=== PATIENT | male | born 1970 | race Two or more races ===

== ENCOUNTER 2019-10-02 15:05 | Emergency (ER) | payer MEDICAID ==
[~2019-10-02] VITALS: Ht 172.7 cm; Wt 83.0 kg
[2019-10-02] MEDS ORDERED: LIDOCAINE HCL/EPINEPHRINE 1%-EPI 1:100,000 20 ML VIAL INFIL SCH (15:44)
[2019-10-02] MEDS ORDERED: BACITRACIN ZINC OINT UDPKT TOP ONE (15:45)
[2019-10-02] MEDS ORDERED: LIDOCAINE 1%/EPI 1:100,000 10 ML VIAL IJ ONE (15:45)
[2019-10-02] MEDS ORDERED: TETANUS, DIPHTHERIA, PERTUSSIS VAC/PF 0.5ML (>7YR OLD) IM ONE (15:45)
[2019-10-02 17:15] VITALS: BP 115/73
[2019-10-02] MEDS ORDERED: CEPHALEXIN 250MG CAPSULE PO ONE (18:45)
== END 2019-10-02 20:22 | disposition home or self-care (01) ==
LOC: EDSEX 15:05 → ER 15:05
DX: S81.812A Laceration without foreign body, left lower leg, initial encounter (principal); V13.4XXA Pedal cycle driver injured in collision with car, pick-up truck or van in traffic accident, initial encounter; Y93.89 Activity, other specified; Y92.488 Other paved roadways as the place of occurrence of the external cause
CPT/HCPCS: 12002; 70450; 73590; 90471; 90715; 99284; J3490

== ENCOUNTER 2019-10-03 11:05 | Emergency (ER) | payer SELFPAY ==
[~2019-10-03] VITALS: Ht 172.7 cm; Wt 65.0 kg
[2019-10-03] MEDS ORDERED: IBUPROFEN 600MG TABLET PO STA (13:09)
[2019-10-03] MEDS ORDERED: LIDOCAINE HCL 1% 20ML VIAL (Pyxis) INJ INFIL ONE (13:15)
[2019-10-03] MEDS ORDERED: CEFTRIAXONE SODIUM 1 G/VIAL IM ONE (13:15)
[2019-10-03 14:20] VITALS: BP 122/68
== END 2019-10-03 14:20 | disposition home or self-care (01) ==
LOC: ER 11:29
DX: S81.812D Laceration without foreign body, left lower leg, subsequent encounter (principal); L03.116 Cellulitis of left lower limb; X58.XXXD Exposure to other specified factors, subsequent encounter
CPT/HCPCS: 96372; 99283; J0696; J3490

== ENCOUNTER 2019-10-06 14:46 | Emergency (ER) | payer MEDICAID ==
[~2019-10-06] VITALS: Ht 172.7 cm; Wt 75.0 kg
[2019-10-06 14:58] VITALS: BP 104/68
[2019-10-06] MEDS ORDERED: CEPH500C2 PO (15:03)
[2019-10-06] MEDS ORDERED: SULF1TAB48 PO (15:03)
[2019-10-06] MEDS ORDERED: IBUP-2029 PO (15:03)
== END 2019-10-06 15:23 | disposition home or self-care (01) ==
LOC: ER 14:46
DX: Z48.00 Encounter for change or removal of nonsurgical wound dressing (principal)
CPT/HCPCS: 99283